=== PATIENT | male | born 1960 | race American Indian/Alaskan Native ===

== ENCOUNTER 2018-01-15 08:32 | Emergency (ER) | payer BC ==
[2018-01-15 08:36] VITALS: BMI 30.1
--- NOTE | 2018-01-15 11:37 | ED PDOC ---
HPI: CCC, URI, Sore Throat Time Seen by Provider: 01/15/18 08:52 Chief Complaint (Nursing): ENT Problem History Per: Patient (this 57 yo male presents to the ER because of right sided nose after blowing his nose hard. The bleeding continued after he stuff the right side with tissue only. He then noticed blood going to the back of the nose. He then got nervous when he noticed his blood pressure being elevated. He admits to noncompliance with one of his two meds and having taken the last tablet of the one that he has taken yesterday.) Past Medical History Vital Signs: Last Vital Signs Temp 98 F 01/15/18 08:37 Pulse 58 L 01/15/18 11:51 Resp 18 01/15/18 11:51 BP 151/82 H 01/15/18 11:51 Pulse Ox 98 01/15/18 11:51 - Medical History PMH: HTN - Surgical History Surgical History: Hernia Repair - Family History Family History: States: No Known Family Hx - Home Medications Home Medications: Ambulatory Orders Medication Instructions Recorded Nebivolol HCl [Bystolic] 10 mg PO DAILY #30 tab 09/01/15 Hydrochlorothiazide [Microzide] 12.5 mg PO DAILY 01/15/18 Hydrochlorothiazide [Microzide] 12.5 mg PO DAILY #14 cap 01/15/18 Nebivolol [Bystolic] 10 mg PO DAILY #14 tab 01/15/18 - Allergies Allergies/Adverse Reactions: Allergies Allergy/AdvReac Type Severity Reaction Status Date / Time No Known Allergies Allergy Verified 01/15/18 08:49 Review of Systems ROS Statement: Except As Marked, All Systems Reviewed And Found Negative Constitutional: Negative for: Fever ENT: Positive for: Other (nose bleeding). Negative for: Nose Pain, Nose Discharge Cardiovascular: Negative for: Chest Pain Respiratory: Negative for: Cough, Shortness of Breath Physical Exam - Reviewed Nursing Documentation Reviewed: Yes Vital Signs Reviewed: Yes - Physical Exam Appears: Positive for: Well, Non-toxic, No Acute Distress Head Exam: Positive for: ATRAUMATIC, NORMAL INSPECTION, NORMOCEPHALIC Skin: Positive for: Normal Color, Warm, DRY Eye Exam: Positive for: Normal appearance ENT: Positive for: Normal ENT Inspection, Other (medial nasal mucosa irritation without active bleeding. ) Neck: Positive for: Normal Cardiovascular/Chest: Positive for: Regular Rate, Rhythm Respiratory: Positive for: CNT, Normal Breath Sounds Extremity: Positive for: Normal ROM Neurologic/Psych: Positive for: Alert, Oriented - ECG O2 Sat by Pulse Oximetry: 97 Medical Decision Making Medical Decision Making: bacitracin ointment applied to the right nare. Will discharge after BP is a better range with meds. 11.30a - blood pressure around 150/80. will discharge. Disposition - Clinical Impression Clinical Impression: Nosebleed, Hypertension - Patient ED Disposition Is Patient to be Admitted: No Doctor Will See Patient In The: Office Counseled Patient/Family Regarding: Diagnosis, Need For Followup, Rx Given - Disposition Referrals: Poncho Davis MD [Family Provider] - [facility] [place] [Outside] Disposition: Routine/Home Disposition Time: 11:30 Condition: IMPROVED Prescriptions: Hydrochlorothiazide [Microzide] 12.5 mg PO DAILY #14 cap Nebivolol [Bystolic] 10 mg PO DAILY #14 tab Instructions: Nosebleeds, High Blood Pressure in Adults Forms: [facility] (Tajik), [facility] ED School/Work Excuse - POA Present On Arrival: None
[2018-01-15 11:51] VITALS: RESP 18
[2018-01-15 12:10] VITALS: BP 149/80; PULSE 61; TEMP 98; O2SAT 100
== END 2018-01-15 12:05 | disposition home or self-care (01) ==
LOC: H.ER 08:32
DX: I10 Essential (primary) hypertension (principal); R04.0 Epistaxis; Z91.19 Patient's noncompliance with other medical treatment and regimen